=== PATIENT | female | born 1990 | race Caucasian/White ===

== ENCOUNTER 2017-12-16 11:41 | Emergency (ER) | END 2017-12-16 12:51 | disposition home or self-care (01) ==

== ENCOUNTER 2017-12-20 20:40 | Emergency (ER) | END 2017-12-20 23:19 | disposition home or self-care (01) ==

== ENCOUNTER 2018-05-20 21:33 | Emergency (ER) | END 2018-05-21 00:27 | disposition home or self-care (01) ==

== ENCOUNTER 2018-05-23 17:06 | Emergency (ER) | END 2018-05-23 18:37 | disposition home or self-care (01) ==

== ENCOUNTER 2018-06-11 12:06 | Emergency (ER) | END 2018-06-11 13:44 | disposition home or self-care (01) ==